=== PATIENT | female | born 1945 | race Caucasian/White ===

== ENCOUNTER 2019-02-08 13:00 | Emergency (ER) | payer MEDICARE, MEDICAID ==
[~2019-02-08] VITALS: Ht 160 cm; Wt 54.0 kg
[2019-02-08] MEDS ORDERED: CLONAZEPAM 1MG TABLET PO ONE (16:15)
[2019-02-08 21:37] VITALS: BP 113/52
== END 2019-02-08 21:39 | disposition home or self-care (01) ==
LOC: ER 13:00
DX: F41.0 Panic disorder [episodic paroxysmal anxiety] (principal); I69.354 Hemiplegia and hemiparesis following cerebral infarction affecting left non-dominant side; I11.0 Hypertensive heart disease with heart failure; I50.9 Heart failure, unspecified; Z59.0 Homelessness
CPT/HCPCS: 99284